=== PATIENT | male | born 1975 | race Caucasian/White ===

== ENCOUNTER → 2020-04-15 | Outpatient (CLI) | payer OTHER, SELFPAY ==
[~2020-04-15] MED LIST: FISH OIL 1,2001 EACH PO; JANUVIA100 MG PO; LEVAQUIN500 MG PO; LIPITOR TAB 1010 MG PO; NEURONTIN 300300 MG PO; NORVASC 5 MG TAB5 MG PO; PRINIVIL20 MG PO; PROTONIX40 MG PO; PROVENTIL HFA6.7 GM INH; SYNJARDY PO; TRAZODONE HCL100 MG PO; TRELEGY INH; TRESIBA FL100 UNIT/1 SQ; VENTOLIN HFA 66.7 GM INH; VISTARIL 50 MG50 MG PO; VITAMIN C 500500 MG PO; VITAMIN D-40400 UNIT PO; potassium otc PO
[2020-04-15 09:32] LABS: HEMOGLOBIN 9.9 gm/dl (14.0-17.5); RED BLOOD COUNT 4.75 M/UL (4.20-5.50); WHITE BLOOD COUNT 10.4 K/UL (4.5-11.0)
[2020-04-15 09:46] LABS: BUN/CREATININE RATIO 19 (0-10)
[2020-04-16 11:14] LABS: CREATININE, URINE 102.3 mg/dL (Not Estab.)
[2020-04-16 16:14] LABS: AMPHETAMINES, URINE Negative ng/mL (Cutoff=1000); BARBITURATE Negative ng/mL (Cutoff=200); BENZODIAZEPINES Negative ng/mL (Cutoff=200); CANNABINOIDS Negative ng/mL (Cutoff=20); COCAINE (METABOLITE) Negative ng/mL (Cutoff=300); CREATININE 100.8 mg/dL (20.0-300.0); MEPERIDINE Negative ng/mL (Cutoff=200); METHADONE Negative ng/mL (Cutoff=300); OPIATES Negative ng/mL (Cutoff=300); PHENCYCLIDINE Negative ng/mL (Cutoff=25); PROPOXYPHENE Negative ng/mL (Cutoff=300)
== END ==
LOC: MRI 08:48
PROVIDERS: Family Medicine; Nurse Practitioner
DX: K76.9 Liver disease, unspecified (principal); E11.8 Type 2 diabetes mellitus with unspecified complications; E78.5 Hyperlipidemia, unspecified; E55.9 Vitamin D deficiency, unspecified; K21.9 Gastro-esophageal reflux disease without esophagitis; I10 Essential (primary) hypertension; R79.82 Elevated C-reactive protein (CRP); Z79.4 Long term (current) use of insulin; Z79.899 Other long term (current) drug therapy
CPT/HCPCS: 36415; 80053; 80061; 80307; 82043; 82570; 82607; 83036; 83735; 84156; 84443; 84550; 85027; 86140

== ENCOUNTER → 2020-05-05 | Outpatient (CLI) | payer OTHER | LOC: CT 08:43 | DX: K76.9 Liver disease, unspecified (principal); M25.552 Pain in left hip; M25.551 Pain in right hip; M25.571 Pain in right ankle and joints of right foot; M25.572 Pain in left ankle and joints of left foot; M25.562 Pain in left knee; M25.561 Pain in right knee; K76.89 Other specified diseases of liver; M79.89 Other specified soft tissue disorders; S93.01XA Subluxation of right ankle joint, initial encounter; M19.072 Primary osteoarthritis, left ankle and foot; M25.471 Effusion, right ankle; X58.XXXA Exposure to other specified factors, initial encounter | CPT/HCPCS: 36415; 73522; 73564; 73610; 74170; 82565; Q9967 ==

== ENCOUNTER → 2020-05-11 | Outpatient (CLI) | payer OTHER | LOC: KOH-I 10:27 | DX: M79.671 Pain in right foot (principal); S92.421A Displaced fracture of distal phalanx of right great toe, initial encounter for closed fracture; X58.XXXA Exposure to other specified factors, initial encounter | CPT/HCPCS: 73610; 73630 ==

== ENCOUNTER → 2020-06-01 | Outpatient (CLI) | payer OTHER | LOC: KOH-I 10:21 | DX: S92.111D Displaced fracture of neck of right talus, subsequent encounter for fracture with routine healing (principal); X58.XXXD Exposure to other specified factors, subsequent encounter | CPT/HCPCS: 73610 ==

== ENCOUNTER → 2020-06-07 | Outpatient (CLI) | payer OTHER | LOC: KOH-I 06-03 15:30 | DX: S92.111A Displaced fracture of neck of right talus, initial encounter for closed fracture (principal); M25.571 Pain in right ankle and joints of right foot; I73.9 Peripheral vascular disease, unspecified; X58.XXXA Exposure to other specified factors, initial encounter | CPT/HCPCS: 93971 ==

== ENCOUNTER → 2021-03-03 | Outpatient (CLI) | payer OTHER | LOC: KOH-I 09:52 | DX: N32.89 Other specified disorders of bladder (principal) | CPT/HCPCS: 72192 ==

== ENCOUNTER → 2021-03-09 | Outpatient (CLI) | payer OTHER | LOC: EXRD 11:30 | DX: N49.2 Inflammatory disorders of scrotum (principal); N43.3 Hydrocele, unspecified; N45.1 Epididymitis | CPT/HCPCS: 76870 ==